=== PATIENT | male | born 1945 | race Caucasian/White ===

== ENCOUNTER 2020-07-20 09:29 | Emergency (ER) | payer MEDICARE, SELFPAY ==
[2020-07-20 09:48] VITALS: BP 144/71; PULSE 75; RESP 20; TEMP 36.9; O2SAT 100
--- NOTE | 2020-07-20 09:49 | ED.EXTPRO ---
HPI - Extremity Problem General Chief complaint: Skin/Abscess/Foreign Body Stated complaint: Blister on Foot Time Seen by Provider: 07/20/20 09:50 Source: patient Mode of arrival: ambulatory Limitations: no limitations History of Present Illness HPI Narrative: Patient presents for evaluation to a blister to the bottom of his left foot. Patient states he first noticed it July 04. Patient denies any drainage from area no tenderness and no streaking. Patient states he has been changing the dressing daily and applying antibiotic ointment given to him by the final cleaner. Patient has a an appointment with the final cleaner in 2 weeks. Related Data Home Medications Medication Instructions Recorded Confirmed allopurinol 100 mg PO DAILY 07/20/20 07/20/20 diltiazem HCl [DILT-XR] 240 mg PO DAILY 07/20/20 07/20/20 losartan 100 mg PO DAILY 07/20/20 07/20/20 metformin 1,000 mg PO BID 07/20/20 07/20/20 mirabegron [Myrbetriq] 50 mg PO Q24H 07/20/20 07/20/20 [id number]-imh-fysu-FA-vit K 1 tablet PO DAILY 07/20/20 07/20/20 [Adults Multivitamin] simvastatin 40 mg PO DAILY 07/20/20 07/20/20 Allergies Allergy/AdvReac Type Severity Reaction Status Date / Time Penicillins Allergy Severe Swelling Verified 07/20/20 10:01 of Lip/Tongue/Throat Review of Systems Review of Systems: Narrative: CONSTITUTIONAL: Denies fever, chills, or sweats. EYES: Denies visual changes, redness, or discharge. ENT: Denies rhinorrhea, congestion, sore throat, or otalgia. CARDIOVASCULAR: Denies chest pain, palpitations, or edema. RESPIRATORY: Denies cough or dyspnea. GASTROINTESTINAL: Denies abdominal pain, nausea, vomiting, or diarrhea. GENITOURINARY: Denies dysuria or hematuria. SKIN: Denies rash or itching. Blister to bottom of left foot no redness no streaking no drainage not tender to touch MUSCULOSKELETAL: Denies back pain, joint pain, or myalgia. NEUROLOGIC: Denies headache, numbness, or weakness. PSYCHIATRIC: Denies anxiety or depression. [facility] Comments At time of signature, agree with nursing past medical, surgical, social and family history. There is no relevant family history pertinent to the presenting complaint Exam Narrative: Exam Narrative: GENERAL: Well-appearing, well-nourished, and in no acute distress. HEAD: Normocephalic, atraumatic. EYES: PERRLA and EOMI. ENT: Nares clear, no rhinorrhea or epistaxis. Mucous membranes moist. NECK: Supple. CHEST: Clear to auscultation. No respiratory distress. HEART: Regular rate and rhythm. No murmur heard. Normal peripheral pulses. ABDOMEN: Soft, nontender, nondistended, normal active bowel sounds. EXTREMITIES: Normal range of motion. No edema. SKIN: Warm, dry, no rash. Patient has a 1 cm long by 1.5 cm wide blistered area to bottom of foot. No redness no drainage not tender to touch not fluctuant. Area to ear appears to have been a blister that ruptured. No concern for diabetic ulcer at this time. No need for debridement. NEURO: No focal deficits. Alert and oriented x3. [place] Coma Scale Eye Opening: Spontaneous 4 [place] Coma Scale Motor: Obeys Commands 6 [place] Coma Scale Verbal: Oriented 5 [place] Coma Scale Total 15 Course Vital Signs Vital signs: Vital Signs Temperature 36.9 C 07/20/20 09:48 Pulse Rate 75 07/20/20 09:48 Respiratory Rate 20 07/20/20 09:48 Blood Pressure 144/71 H 07/20/20 09:48 Pulse Oximetry 100 07/20/20 09:48 Temperature 36.9 C 07/20/20 09:48 Pulse Rate 75 07/20/20 09:48 Respiratory Rate 20 07/20/20 09:48 Blood Pressure 144/71 H 07/20/20 09:48 Pulse Oximetry 100 07/20/20 09:48 Please FRANK schedule a followup visit with your personal physician for further evaluation and treatment. Including recheck and discussion of your blood pressure. If your symptoms persist, change or worsen significantly before you can contact your personal physician then please, without delay, go to the emergency department for further evaluation Dis
== END 2020-07-20 10:10 | disposition home or self-care (01) ==
PROVIDERS: Emergency Provider Nurse Practitioner Family; PCP Internal Medicine
DX: L03.90 Cellulitis, unspecified (principal); S90.822A Blister (nonthermal), left foot, initial encounter; X58.XXXA Exposure to other specified factors, initial encounter; E78.00 Pure hypercholesterolemia, unspecified; I10 Essential (primary) hypertension; E11.9 Type 2 diabetes mellitus without complications; M10.9 Gout, unspecified
CPT/HCPCS: 99203; G0463